=== PATIENT | female | born 1970 | race Caucasian/White ===

== ENCOUNTER 2019-06-24 16:08 | Emergency (ER) | payer OTHER, SELFPAY ==
[2019-06-24 17:19] VITALS: BP 155/79; PULSE 80; RESP 18; TEMP 37.1; O2SAT 98
--- NOTE | 2019-06-24 17:47 | ED.EAR ---
HPI - Ear Problem General Stated complaint: Ear Pain Time Seen by Provider: 06/24/19 17:47 Source: patient and RN notes reviewed Mode of arrival: ambulatory Limitations: no limitations History of Present Illness HPI Narrative: 48-year-old female presents with concern for ringing in her left ear for approximately 3 days. Reports slight left-sided nasal congestion, otherwise no cold symptoms. Reports she just finished ciprofloxacin approximately 5 days ago for what UTI. Reports decreased hearing in the left ear. Denies any injury or trauma to the ear, denies any discharge from the ear MD Complaint: ear pain Review of Systems Review of Systems: Narrative: CONSTITUTIONAL: Denies malaise, chills, sweats, or fever. EYES: Denies visual changes, redness, or discharge. ENT: Denies rhinorrhea, sinus pain, and sore throat. Reports ringing in the left ear and left-sided nasal congestion CARDIOVASCULAR: Denies chest pain, palpitations, or edema. RESPIRATORY: Denies cough or dyspnea. GASTROINTESTINAL: Denies abdominal pain, nausea, vomiting, diarrhea SKIN: Denies rash or itching. MUSCULOSKELETAL: Denies myalgia. NEUROLOGIC: Denies headache. All systems reviewed & are unremarkable except as noted in HPI and below PMFSH Comments At time of signature, agree with nursing past medical, surgical, social and family history. There is no relevant family history pertinent to the presenting complaint Exam Narrative: Exam Narrative: GENERAL: Well-appearing, well-nourished, and in no acute distress. HEAD: Normocephalic EYES: PERRLA, conjunctivae clear ENT: Nares clear, turbinates pink, no discharge, no sinus tenderness. Mucous membranes moist. TM pearly lopes with sharp light reflex bilaterally, bony structures intact; no tragal tenderness. Oropharynx not erythematous without lesions. Tonsils not enlarged and without exudate, no drooling, no hoarseness, no trismus. Negative Alfonso and Rinne test left ear NECK: Supple. No lymphadenopathy CHEST: Clear to auscultation, breath sounds equal. No wheezing, rhonchi, rales, or stridor. No respiratory distress, speaks in full sentences. HEART: Regular rate and rhythm. No murmur heard. Normal peripheral pulses. SKIN: Warm, dry, no rash. NEURO: Alert and oriented x3. PSYCH: Normal mood and affect Course Course Emergency Course: Patient is aware of diagnosis, understands and agrees to treatment plan. Anticipatory guidance given. Patient agrees to follow-up as directed and is aware of reasons to seek care at the emergency department. Portions of this record may have been created with voice recognition software Vital Signs Vital signs: Vital Signs Temperature 98.7 F 06/24/19 17:19 Pulse Rate 80 06/24/19 17:19 Respiratory Rate 18 06/24/19 17:19 Blood Pressure 155/79 H 06/24/19 17:19 Pulse Oximetry 98 06/24/19 17:19 Temperature 98.7 F 06/24/19 17:19 Pulse Rate 80 06/24/19 17:19 Respiratory Rate 18 06/24/19 17:19 Blood Pressure 155/79 H 06/24/19 17:19 Pulse Oximetry 98 06/24/19 17:19 Reviewed. Pt has been instructed to follow up with his primary care provider within the next week regarding his elevated blood pressure today. Medical Decision Making MDM Narrative Medical decision making narrative: Differential diagnosis considered: Strep pharyngitis, allergic rhinitis, upper respiratory tract infection, sinusitis, rhinosinusitis, nasopharyngitis. viral pharyngitis, otitis media, otitis externa, pneumonia, bronchitis, viral cough syndrome, viral syndrome, and influenza. Exam findings show no acute concerns or changes; patient is non-toxic appearing and is in no distress. Patient is appropriate for outpatient treatment and follow-up. Vital Signs Vital Signs: Vital Signs Temperature 98.7 F 06/24/19 17:19 Pulse Rate 80 06/24/19 17:19 Respiratory Rate 18 06/24/19 17:19 Blood Pressure 155/79 H 06/24/19 17:19 Pulse Oximetry 98 06/24/19 17:19 Temperature 98.7 F 06/24/19 1
== END 2019-06-24 18:10 | disposition home or self-care (01) ==
PROVIDERS: Emergency Provider Nurse Practitioner
DX: H93.12 Tinnitus, left ear (principal)
CPT/HCPCS: 99201; G0463